=== PATIENT | male | born 1965 | race American Indian/Alaskan Native ===

== ENCOUNTER 2021-11-08 20:42 | Inpatient (IN) ==
[2021-11-08] MEDS ORDERED: PIPERACILLIN SODIUM/TAZOBACTAM 3.375 GM in DEXTROSE 5% IN WATER 50 ML IV ONE (22:00)
[2021-11-08] MEDS ORDERED: VANCOMYCIN 1,500 MG in 0.9 % SODIUM CHLORIDE 500 ML IV ONE (22:00)
[2021-11-08 23:02] LABS: Basophils # (Auto) 0.12 K/mcL (0.00-0.30); Basophils % (Auto) 0.9 % (0.0-2.0); Eosinophils # (Auto) 0.19 K/mcL (0.00-0.70); Eosinophils % (Auto) 1.5 % (0.0-7.0); Hematocrit 41.4 % (40.1-51.0); Hemoglobin 13.8 g/dL (13.7-17.5); Lymphocytes # (Auto) 1.63 K/mcL (1.50-4.80); Lymphocytes % (Auto) 12.4 % (15.5-49.0); Mean Cell Volume 80.4 fL (80.0-100.0); Mean Corpuscular HGB Conc 33.3 g/dL (31.0-36.0); Mean Platelet Volume 9.4 fL (7.4-10.4); Monocytes # (Auto) 1.02 K/mcL (0.10-0.90); Monocytes % (Auto) 7.8 % (1.0-12.0); Neutrophils % (Auto) 77.4 % (38.0-78.0); Platelet Count 461 K/mcL (140-440); RBC 5.15 M/mcL (4.63-6.08); Red Cell Distribution Width 12.2 % (11.5-14.5); WBC 13.1 K/mcL (4.5-11.0)
[2021-11-08 23:23] LABS: ALT/SGPT 28 U/L (<40); AST/SGOT 29 U/L (<40); Albumin 3.2 gm/dL (3.2-5.2); Albumin/Globulin Ratio 0.7 (1.0-2.3); Alkaline Phosphatase 112 U/L (39-117); Bilirubin,Total 0.5 mg/dL (0.1-1.0); Blood Urea Nitrogen 9 mg/dL (6-20); Calcium 8.5 mg/dL (8.6-10.4); Carbon Dioxide 24 mmol/L (22-30); Chloride 100 mmol/L (96-108); Globulin 4.8 gm/dL (2.2-3.7); Glomerular Filtration Rate 99; Glucose 146 mg/dL (70-105)
[2021-11-08] MEDS ORDERED: morphine 2 MG/ML VIAL IV PRN (23:33)
[2021-11-08] MEDS ORDERED: ONDANSETRON 4 MG/2 ML VIAL IV PRN (23:33)
--- NOTE | 2021-11-09 00:14 | Emergency Department Note ---
HPI General Chief complaint: Skin/Abscess/Rash Stated complaint: abscess Time Seen by Provider: 11/08/21 21:05 Source: patient Mode of arrival: ambulatory Limitations: no limitations History of Present Illness HPI Narrative: Narrative: 56 yo M w/ no PMH p/w a R buttock abscess. He reports that he first noted some p ain and swelling about one week ago. This progressed to become increasingly large and painful. A few days ago it opened and since then has been draining fluid every few hours. He has not had F/C, the progression has been slow, and he is o/w feeling well. He denies any difficulty w/ BMs. He has never had any similar episodes in the past. He has no h/o immunocompromise, has not had any injury to the area. Related Data Allergies Allergy/AdvReac Type Severity Reaction Status Date / Time No Known Drug Allergies Allergy Unverified 11/08/21 20:45 Review of Systems ROS ROS Narrative: Narrative: All systems ED: reviewed and negative except as stated. [facility] Narrative Patient History Narrative: Narrative: Medical/Surgical/Family History All Active Problems (Updated 11/09/21 @ 00:24 by Ray Naqvi MD) Abscess of skin or subcutaneous tissue (Acute) Social History Smoking Status: Never smoker Exam Narrative Narrative: Narrative: General Limitations: no limitations General appearance: Present alert and in no apparent distress Head Head: Present atraumatic and normocephalic ENT ENT: Present normal oropharynx and mucous membranes moist Chest Chest: Present normal inspection and symmetric chest wall rise Respiratory Respiratory: Present normal lung sounds bilaterally; Absent respiratory distress or accessory muscle use Cardiovascular Cardiovascular: Present regular rate, normal rhythm, +S1, +S2 and other (2+ B/L radial pulses); Absent systolic murmur or diastolic murmur Adbominal Abdominal: Present soft and normal bowel sounds; Absent distention or tenderness Rectal Rectal: Present normal inspection, normal rectal tone and other (10cm diameter, about 1-2 cm tall erythematous, fluctuant, warm, tender abscess over the R upper buttock w/ ~3cm open ulceration w/ slough tissue, granulation tissue and purulent drainage present. Rectal exam w/ no evidence of communication) Neurological Neurological: Present alert and oriented X3 Psychiatric Psychiatric: Present normal affect Skin Skin: Present warm (WNL) and dry Course Vital Signs Vital signs: Vital Signs Temperature 98.1 F 05/30/22 20:43 Pulse Rate 85 11/08/21 20:43 Respiratory Rate 16 11/08/21 20:43 Blood Pressure 146/86 11/08/21 20:43 Pulse Oximetry (%) 98 11/08/21 20:43 Temperature 98.1 F 11/08/21 20:43 Pulse Rate 85 11/08/21 20:43 Respiratory Rate 16 11/08/21 20:43 Blood Pressure 146/86 11/08/21 20:43 Pulse Oximetry (%) 98 11/08/21 20:43 MDM MDM Narrative Medical decision making narrative: Narrative: 56 yo M w/ no PMH p/w a R buttock abscess. DDx - sepsis, NSTI, cellulitis/abscess, perirectal abscess Pt presents clinically stable, in NAD. He is nontoxic and while WBC are elevated he does not meet SIRS criteria and lactate is WNL. He has no pain out of p roportion to exam or rapid progression and NSTI is unlikely. The abscess does appear to be limited to the soft tissue both clinically and on bedside US, doubt rectal involvement. While there is an open ulceration this is clearly not enough for drainage and is partially closed over w/ granulation and slough tissue. Bedside US shows what seems to be fluid w/ dense loculations. The extent of this abscess is more than can be approached in the ED. I contacted Dr Azevedo w/ surgery who agreed to admit the pt and plans on operative intervention in the AM. While proceeding w/ W/U, pt was started on vanc and zosyn which he tolerated well. Lab Data Result diagrams: 11/08/21 22:25 11/08/21 22:25 Labs: Lab Results 11/08/21 11/08/21 Range/Units 22:25 22:25 WBC 13.1 H (4.5-11.0) K/mcL RBC 5.15 (4.63-6.08) M/mcL Hgb 13.8 (13.7-17.5) g/dL Hct 41.4 (40.1-51.0) % MCV 80.4 (80.0-100.0) fL MCH 26.8 (26.0-34.0) pg MCHC 33.3 (31.0-36.0) g/dL RDW 12.2 (11.5-14.5) % Plt Count 461 H (140-440) K/mcL MPV 9.4 (7.4-10.4) fL Neut % (Auto) 77.4 (38.0-78.0) % Lymph % (Auto) 12.4 L (15.5-49.0) % [place] % (Auto) 7.8 (1.0-12.0) % Eos % (Auto) 1.5 (0.0-7.0) % Baso % (Auto) 0.9 (0.0-2.0) % Lymph # (Auto) 1.63 (1.50-4.80) K/mcL [place] # (Auto) 1.02 H (0.10-0.90) K/mcL Eos # (Auto) 0.19 (0.00-0.70) K/mcL Baso # (Auto) 0.12 (0.00-0.30) K/mcL Absolute Neutrophils 10.14 H (1.80-8.00) K/mcL VBG Lactic Acid 1.0 (0.5-2.0) mmol/L Sodium 135 (133-145) mmol/L Potassium 3.8 (3.3-5.1) mmol/L Chloride 100 (96-108) mmol/L Carbon Dioxide 24 (22-30) mmol/L Anion Gap 11.0 (8.0-16.0) BUN 9 (6-20) mg/dL Creatinine 0.8 (0.7-1.2) mg/dL GFR Calculation 99 Glucose 146 H (70-105) mg/dL Calcium 8.5 L (8.6-10.4) mg/dL Total Bilirubin 0.5 (0.1-1.0) mg/dL AST 29 (<40) U/L ALT 28 (<40) U/L Alkaline Phosphatase 112 (39-117) U/L Total Protein 8.0 (5.9-8.4) gm/dL Albumin 3.2 (3.2-5.2) gm/dL Globulin 4.8 H (2.2-3.7) gm/dL Albumin/Globulin Ratio 0.7 L (1.0-2.3) Discharge Plan Patient/Caregiver Discharge Instructions Pt seen by POLE SHAVER/PA only: No Clinical Impression: Abscess of skin or subcutaneous tissue Patient Disposition: Xfer As Inpt ([facility]) Condition: Good Follow up with: No,PCP [Primary Care Provider] -
[2021-11-09] MEDS: DEXTROSE 5%-1/2NS 1,000 ML IV SCH ×3 (01:31→15:14)
--- NOTE | 2021-11-09 07:30 | General Surg History&Physical ---
HPI History of Present Illness Patient information: Note initiated : 11/09/21 at 7:27 am Service Date, if different from initiated Date: [] Patient: Kevin Austin 56 y/o M admitted on 11/09/21 for abscess. Chief Complaint: [] Chief complaint: Gluteal abscess History of present illness: Mr. Austin is a 56 year old M who over the last week he has had a abscess on his right gluteal region. He has tried warm compresses, he got it draining but is still draining quite a bit so he can do the emergency room where he was seen and evaluated and it was decided that the abscess was too large to try to clean out in the emergency room. Has asked to see and evaluate the patient for possible operative drainage. Patient has no fevers chills nausea or vomiting. He has no prior history of similar sort of problems. Review of Systems Review of systems: All systems are reviewed, negative other than above PFSH PFSH All Active Problems Abscess of skin or subcutaneous tissue (Acute) MEDS/ALLERGIES Home Medications and Allergies Home Medications Medication Instructions Recorded Confirmed Type No Known Home Meds 11/09/21 11/09/21 History Allergies Allergy/AdvReac Type Severity Reaction Status Date / Time No Known Drug Allergies Allergy Verified 11/09/21 01:35 Physical Examination Vital Signs Vital signs: Temp Pulse Resp BP Pulse Ox 96.2 F L 60 16 109/66 98 11/09/21 04:26 11/09/21 04:26 11/09/21 04:26 11/09/21 04:26 11/09/21 04:26 General physical appearance General physical exam: well developed, well nourished and no distress Eyes Eye exam: PERRL and normal ocular movement ENT ENT exam: normal pinna, normal nares, normal mucosa, no hearing loss and no congestion Head Head exam IM: Present atraumatic and normocephalic Neck Neck exam: no masses, no bruits, trachea midline, no lymphadenopathy and no venous distension Cardiovascular Cardiovascular exam IM: Present normal rate and rhythm Respiratory Respiratory exam: normal expansion, normal respiratory effort, clear to percussion and clear to auscultation Abdomen Abdomen: Present soft, non tender and bowel sounds Hernia: Present none Genitourinary Genitourinary (Male): Present normal penis with no external lesions Rectum Rectum: Present normal sphincter tone, no hemorrhoids, no tenderness, no masses and no bleeding Integumentary Integumentary: Present other (Right gluteal area with abscess and drainage.) Neurologic Neurologic: Present normal coordination and normal sensation Musculoskeletal Musculoskeletal: Present normal gait and normal posture Psychiatric Psychiatric: Present oriented to time, oriented to person, oriented to place, speech is normal and memory intact Results Labs Result diagrams: 11/08/21 22:25 11/08/21 22:25 Labs: Abnormal lab results 11/08/21 11/08/21 Range/Units 22:25 22:25 WBC 13.1 H (4.5-11.0) K/mcL Plt Count 461 H (140-440) K/mcL Lymph % (Auto) 12.4 L (15.5-49.0) % [place] # (Auto) 1.02 H (0.10-0.90) K/mcL Absolute Neutrophils 10.14 H (1.80-8.00) K/mcL Glucose 146 H (70-105) mg/dL Calcium 8.5 L (8.6-10.4) mg/dL Globulin 4.8 H (2.2-3.7) gm/dL Albumin/Globulin Ratio 0.7 L (1.0-2.3) Diabetes panel 11/08/21 Range/Units 22:25 Sodium 135 (133-145) mmol/L Potassium 3.8 (3.3-5.1) mmol/L Chloride 100 (96-108) mmol/L Carbon Dioxide 24 (22-30) mmol/L BUN 9 (6-20) mg/dL Creatinine 0.8 (0.7-1.2) mg/dL Glucose 146 H (70-105) mg/dL Calcium 8.5 L (8.6-10.4) mg/dL AST 29 (<40) U/L ALT 28 (<40) U/L Alkaline Phosphatase 112 (39-117) U/L Total Protein 8.0 (5.9-8.4) gm/dL Albumin 3.2 (3.2-5.2) gm/dL Calcium panel 11/08/21 Range/Units 22:25 Calcium 8.5 L (8.6-10.4) mg/dL Albumin 3.2 (3.2-5.2) gm/dL Pituitary panel 11/08/21 Range/Units 22:25 Sodium 135 (133-145) mmol/L Potassium 3.8 (3.3-5.1) mmol/L Chloride 100 (96-108) mmol/L Carbon Dioxide 24 (22-30) mmol/L BUN 9 (6-20) mg/dL Creatinine 0.8 (0.7-1.2) mg/dL Glucose 146 H (70-105) mg/dL Calcium 8.5 L (8.6-10.4) mg/dL Adrenal panel 11/08/21 Range/Units 22:25 Sodium 135 (133-145) mmol/L Potassium 3.8 (3.3-5.1) mmol/L Chloride 100 (96-108) mmol/L Carbon Dioxide 24 (22-30) mmol/L BUN 9 (6-20) mg/dL Creatinine 0.8 (0.7-1.2) mg/dL Glucose 146 H (70-105) mg/dL Calcium 8.5 L (8.6-10.4) mg/dL Total Bilirubin 0.5 (0.1-1.0) mg/dL AST 29 (<40) U/L ALT 28 (<40) U/L Alkaline Phosphatase 112 (39-117) U/L Total Protein 8.0 (5.9-8.4) gm/dL Albumin 3.2 (3.2-5.2) gm/dL All other labs normal. A/P Assessment and plan (1) Abscess of skin or subcutaneous tissue: Plan: This is a pleasant 56-year-old gentleman who presents with a right gluteal abscess. Risk, benefits, alternatives to the procedure was discussed with the patient at length. He verbalized understanding and desire to continue with the procedure. Plan: To the OR for operative incision and drainage of right gluteal abscess. Status: Acute Time Spent With Patient Time: Total time spent is greater than 50% in coordination of care (as documented) at patient's floor/unit and/or counseling patient:
[2021-11-09] MEDS ORDERED: MIDAZOLAM 2 MG/2 ML VIAL ONE (09:08)
[2021-11-09] MEDS ORDERED: KETAMINE 50 MG/ML Syringe (ANEST) IV ONE (09:08)
[2021-11-09] MEDS ORDERED: ONDANSETRON 4 MG/2 ML VIAL ONE (09:08)
[2021-11-09] MEDS ORDERED: DEXAMETHASONE 10 MG/ML VIAL ONE (09:08)
[2021-11-09] MEDS ORDERED: fentaNYL 250 MCG/5 ML VIAL IV ONE (09:08)
[2021-11-09] MEDS ORDERED: GLYCOPYRROLATE 0.2 MG/ML VIAL IV ONE (09:08)
[2021-11-09] MEDS ORDERED: ePHEDrine 50 MG/5 ML SYRINGE (ANEST) IV ONE (09:08)
[2021-11-09] MEDS ORDERED: PROPOFOL 200 MG/20 ML VIAL IV ONE (09:08)
[2021-11-09] MEDS ORDERED: LIDOCAINE HCL/PF 100 MG/5 ML SYRINGE IV ONE (09:08)
[2021-11-09] MEDS ORDERED: PHENYLephrine 1 MG/10 ML SYRINGE (ANEST) ONE (09:08)
[2021-11-09] MEDS ORDERED: MAGNESIUM SULFATE 2 GM/50 ML BAG IV ONE (09:08)
--- NOTE | 2021-11-09 09:29 | Operative Note ---
Brief Operative Note Date of procedure: 11/09/21 Pre-op diagnosis: Right buttocks abscess Post-op diagnosis: same Procedure: Incision and drainage with debridement of right buttocks abscess Grafts/Implants: No Anesthesia: GLMA Findings: 5 x 5 cm abscess cavity with necrotic overlying skin Complications: none Surgeon: Clinton Azevedo Estimated blood loss (cc): 50 Specimens Removed/Pathology: none sent Condition: stable Disposition: PACU Operative Note Operative Note: After all risk benefits and alternatives to the procedure were discussed with the patient at length he verbalized understanding and desire to continue the procedure. Patient was taken main operating placed upon operative table. General anesthesia was induced over LMA. Patient was placed in a left lateral decubitus position. Patient's prepped and draped in the standard sterile surgical fashion. Surgical timeout was taken to verify patient and procedure being performed. Attention was turned to the right buttocks abscess cavity the necrotic skin over the top was draining the loculations of the abscess cavity were widely broken up with small amount of pus drained. All necrotic skin was excised over the top of the abscess cavity and then hemostasis was obtained with electrocautery. Once this is done the cavity was packed with Betadine soaked Kerlix gauze and ABD dressing was applied. Patient was then awakened from anesthesia transported postanesthesia care unit awake alert in good condition.
[2021-11-09] MEDS ORDERED: NALOXONE HCL 0.4 MG/ML VIAL IV PRN (09:39)
[2021-11-09] MEDS ORDERED: LABETALOL 5 MG/ML ML IV PRN (09:39)
[2021-11-09] MEDS ORDERED: IPRATROPIUM/ALBUTEROL 3 ML AMPUL.NEB NEB PRN (09:39)
[2021-11-09] MEDS ORDERED: ONDANSETRON 4 MG/2 ML VIAL IV PRN (09:39)
[2021-11-09] MEDS ORDERED: METHOCARBAMOL 1,000 MG/10 ML VIAL IV PRN (09:39)
[2021-11-09] MEDS ORDERED: FLUMAZENIL 0.1 MG/ML ML IV PRN (09:39)
[2021-11-09] MEDS ORDERED: METOPROLOL TARTRATE 5 MG/5 ML VIAL IV PRN (09:39)
[2021-11-09] MEDS ORDERED: fentaNYL 100 MCG/2 ML VIAL IV PRN (09:39)
[2021-11-09] MEDS ORDERED: MEPERIDINE 25 MG/ML VIAL IV PRN (09:39)
[2021-11-09] MEDS ORDERED: LACTATED RINGERS 250 ML IV PRN (09:39)
[2021-11-09] MEDS ORDERED: HYDROmorphone 0.5 MG/0.5 ML SYRINGE IV PRN (09:39)
[2021-11-09] MEDS ORDERED: ACETAMINOPHEN 1,000 MG/100 ML BAG IV ONE (09:39)
[2021-11-09] MEDS ORDERED: LACTATED RINGERS 1,000 ML IV SCH (09:45)
--- NOTE | 2021-11-09 15:04 | Discharge Summary ---
Discharge Provider Provider IMPORTANT FOLLOW-UP INFORMATION FOR PCP: Patient information: Note initiated : 11/09/21 at 2:56 pm Service Date, if different from initiated Date: [] Patient: Kevin Austin 56 y/o M admitted on 11/09/21 for abscess. Chief Complaint: [] Date of admission: 11/09/21 00:50 Discharge date: 11/09/21 Primary care physician: PCP No Consults: 11/08/21 Consult to Physician [CONS] Stat Comment: Consulting Provider: Dakota Jeronimo Reason For Exam: Physician to Consult Consult to Physician [CONS] Stat Comment: Consulting Provider: Clinton Azevedo Reason For Exam: Physician to Consult COURSE Hospital Course Hospital course: Patient was admitted for right gluteal abscess, underwent incision and drainage. Patient is now doing very well. Discharge diagnosis: Status post incision and drainage of right gluteal abscess Time Spent with Patient Time attestation: Total time spent providing and/or coordinating discharge services: Time spent: Less than 30 minutes Physical Examination Vital Signs Vital signs: Temp Pulse Resp BP Pulse Ox 97.1 F 78 14 133/80 98 11/09/21 10:15 11/09/21 10:15 11/09/21 10:15 11/09/21 10:15 11/09/21 10:15 Discharge Plan Patient/Caregiver Discharge Instructions Activity: increase activity as tolerated Diet: Regular Diet Activity Restrictions/Additional Instructions: Leave dressing until tomorrow a.m., then remove and shower twice daily with dry dressing covered. Follow-up with me in 1 to 2 weeks. Prescriptions: New ibuprofen 800 mg tablet 800 mg PO TID PRN (Reason: pain) Qty: 90 0RF acetaminophen [Tylenol 8 Hour] 650 mg tablet extended release 650 mg PO Q8H PRN (Reason: pain) Qty: 90 0RF Follow Up Plan Follow up with: Clinton Azevedo MD [Physician] - No,PCP [Primary Care Provider] - Patient Disposition: Home, Self-Care Prognosis: Good Discharge Orders: Discharge Order (Routine); Ordered 11/09/21 Ordered By: Clinton Azevedo Pending Pending Pending: Diet Regular Diet Start MonNovember 09 0930 Dextrose/Sodium Chloride (Dextrose 5%-1/2ns Iv Solution) 1,000 mls @ 150 mls/hr IV .Q6H40M ANA Last Admin: 11/09/21 07:42 Dose: 150 mls/hr Documented by: Infusion: 11/09/21 07:42 Dose: 150 mls/hr Documented by: Admin: 11/09/21 01:31 Dose: 150 mls/hr Documented by: SYLVIA Shift Summary 11/09/21 03:58 Shift Summary by Teresa Duncan Primary Diagnosis: Abscess to L buttock Registration Status: Inpatient Day of Hospitalization: 11/09 Date of Surgery (if applicable): 11/09- Abscess I & D Pertinent Medical Dx/Issue(s): Hospitalist note: Hx of Present Illness: 56 yr old M w/ no PMH p/w a R buttock abscess. He reports that he first noted some pain and swelling about one week ago. This progressed to become increasingly large and painful. A few days ago it opened and since then has been draining fluid every few hours. He has not had F/C, the progression has been slow, and he is o/w feeling well. He denies any difficulty w/ BMs. He has never had any similar episodes in the past. He has no h/o immune-compromise, has not had any injury to the area. No prior medical hx. MRSA swab collected and sent to lab this shift. Pics taken and are in the chart. No home meds; Has had the covid vaccine. Interventions (wounds, diuresis, etc): PRN pain meds; IVF; Gauze impregnated with NS covered with dry gauze and is wearing a nylon brief to help keep it secure. Vital Signs with Trends: VSS on RA Neuro/Mental Status: Alert and Oriented x4; Very pleasant and cooperative Meds (abo, pain, BP, etc): Given Zosyn and Vanco in the ER; C/o minimal pain with touch, refused pain meds this shift. No c/o nausea. Lines/Tubes: 20g in LFA running D5 NS at 150mls/hr O2, liter flow/saturations: RA Lab/Rad results: 11/08- WBC 13.1. Date of last BM: 11/08 Elimination: Voids per BR Recommendations/questions for MD: Activity: Up with SBA to help manage lines Expected date of discharge: TBD Discharge Plan (needs, disposition, etc): TBD Initialized on 11/09/21 03:58 - END OF NOTE
--- NOTE | 2021-11-12 06:58 | EKG ---
[facility] Test Date: 2021-11-09 Pat Name: Kevin Austin Department: [facility] Room: 132 Gender: Male Medical Doctor: : 1965 Requested By: Clinton Azevedo Order Number: [id number] Reading MD: Jerrod Pisano Measurements Intervals [place] Rate: 60 P: 60 MA: 127 QRS: 3 QRSD: 132 T: -11 QT: 470 QTc: 470 Interpretive Statements Sinus rhythm Right bundle branch block Electronically Signed On 11-12-2021 6:58:11 PDT by Jerrod Pisano /[id number]/[id number]
== END 2021-11-09 16:30 | disposition home or self-care (01) ==
LOC: ED 20:42 → MEDSUR 11-09 00:50
PROVIDERS: ADMIT Internal Medicine; ATTEND Surgery